=== PATIENT | female | born 1990 | race Caucasian/White ===

== ENCOUNTER 2021-07-03 21:33 | Emergency (ER) | payer OTHER, SELFPAY ==
--- NOTE | ~2021-07-03 | XR_ITS ---
XR hip RT 2V w AP pelvis DATE: 07/04/2021 02:04 INDICATION: Fall 3 days ago. Right posterior hip pain, low back pain TECHNIQUE: AP pelvis. AP and lateral views of right hip COMPARISON: None FINDINGS: No pelvic fracture or bone destruction. The pubic symphysis and sacroiliac joints are intac t. No fracture or dislocation, avascular necrosis or bone destruction of the right hip. Hip joint spa tiera appear symmetric and well preserved. IMPRESSION: Negative Reviewed, dictated and finalized at location A. 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
[2021-07-03 21:41] VITALS: BP 126/87; PULSE 78; RESP 18; TEMP 36.9; O2SAT 100
[2021-07-04] MEDS: KETOROLAC (*BKC) 60 MG/2 ML VIAL IM (02:56)
[2021-07-04 03:30] LABS: Add Urine Microscopic? YES; Appearance Urine Clear (Clear); Bacteria Urine Trace /hpf; Bilirubin Urine Negative (Negative); Blood Urine Negative (Negative); Color Urine Yellow (Yellow); Glucose Urine UA Negative (Negative); Ketones Urine Trace mg/dL (Negative); Leukocyte Esterase Ur Negative LEU/UL (Negative); Mucus Urine Rare /lpf; Nitrate Urine Negative (Negative); Protein Urine Negative (Negative); RBC Urine 0-2 /hpf (0-2); Specific Grav Ur 1.014 (1.001-1.035); Squamous Epithelial Cell Urine Rare /hpf (Few); Urobilinogen Urine Negative mg/dL (<2.0); WBC Urine 0-3 /hpf
--- NOTE | 2021-07-04 04:17 | ED.FALL ---
HPI - Fall General Chief Complaint: Fall Stated Complaint: right hip pain s/p fall Time Seen by Provider: 07/04/21 01:29 History of Present Illness HPI Narrative: Patient is a 31-year-old female who presents ER with left hip pain. Patient had a slip and fall on ice 4 days ago. She had initial pain but has increased over the last few days. No improvement with Flexeril. She has developed some urinary frequency and suprapubic cramping. The cramping feels like her previous issues with endometriosis but she is unsure if is related. Pain in the hip radiates into the low back and buttock region also goes into the thigh. No numbness or tingling. No saddle anesthesia. Related Data Allergies Allergy/AdvReac Type Severity Reaction Status Date / Time hydrocodone AdvReac Unknown Nausea and Verified 07/28/18 08:02 Vomiting Review of Systems Musculoskeletal: Musculoskeletal: Reports back pain, Reports arthralgias, Denies joint swelling and Reports muscle cramps Integumentary/Breasts: Skin/Breast: Denies erythema and Denies rash Neurologic: Denies syncope, Denies focal weakness and Denies numbness PMFSH Past Medical History Medical History (Updated 07/04/21 @ 04:32 by Marcelo Anderson MD) Endometriosis Ovarian cyst Surgical History Surgical History (Updated 07/04/21 @ 04:32 by Marcelo Anderson MD) H/O laparoscopy History of appendectomy Social History Social History (Updated 07/04/21 @ 04:32 by Marcelo Anderson MD) Smoking status: Never smoker Exam Narrative: GENERAL: Well-appearing, well-nourished, and in no acute distress. HEAD: Normocephalic, atraumatic. CHEST: Clear to auscultation. No respiratory distress. HEART: Regular rate and rhythm. Normal peripheral pulses. ABDOMEN: Soft, nontender, nondistended. EXTREMITIES: Focused exam right lower extremity reveals full range of motion that is painless at the right hip and knee. There is tenderness over the lateral posterior aspect of the right hip without bruising or swelling. No shortening of the leg. Sensation intact. Back: No midline tenderness of thoracic or lumbar spine. There is right paraspinal muscular tenderness extending into the gluteal region without visual evidence of trauma. SKIN: Warm, dry, no rash. NEURO: No focal deficits. Alert and oriented x3. PSYCH: Normal mood and affect. Course Course Emergency Course: No urinary retention, 35 mL on bladder scan. Pain markedly improved with Toradol. Discharge home. Vital Signs Vital signs: Vital Signs Temperature 98.4 F 07/03/21 21:41 Pulse Rate 78 07/03/21 21:41 Respiratory Rate 18 07/03/21 21:41 Blood Pressure 126/87 07/03/21 21:41 Pulse Oximetry 100 07/03/21 21:41 Temperature 98.4 F 07/03/21 21:41 Pulse Rate 78 07/03/21 21:41 Respiratory Rate 18 07/03/21 21:41 Blood Pressure 126/87 07/03/21 21:41 Pulse Oximetry 100 07/03/21 21:41 MDM - Fall Lab Data Labs: Lab Results 07/04/21 Range/Units 02:53 Urine Color Yellow (Yellow) Urine Appearance Clear (Clear) Urine pH 5.0 (5.0-9.0) Ur Specific [place] 1.014 (1.001-1.035) Urine Protein Negative (Negative) mg/dL Urine Glucose (UA) Negative (Negative) mg/dL Urine Ketones Trace (Negative) mg/dL Ur Blood (Man) Negative (Negative) Urine Nitrate Negative (Negative) Urine Bilirubin Negative (Negative) Urine Urobilinogen Negative (<2.0) mg/dL Leukocyte Esterase Rfl Negative (Negative) GURJIT/UL Urine RBC 0-2 (0-2) /hpf Urine WBC 0-3 /hpf Ur Squamous Epith Cells Rare (Few) /hpf Urine Bacteria Trace /hpf Urine Mucus Rare /lpf UCG Bedside Result Negative Reference Range: Negative Imaging Data My impression: X-ray right hip and pelvis: No acute process. Discharge Plan Discharge Clinical Impression: Contusion of hip, Low back strain Patient Disposition: Home, Self-Care
== END 2021-07-04 05:09 | disposition home or self-care (01) ==
PROVIDERS: Emergency Provider Emergency Medicine
DX: S70.02XA Contusion of left hip, initial encounter (principal); S39.012A Strain of muscle, fascia and tendon of lower back, initial encounter; N80.9 Endometriosis, unspecified; W00.0XXA Fall on same level due to ice and snow, initial encounter
CPT/HCPCS: 73502; 81001; 81025; 96372; 99283; J1885

== ENCOUNTER 2024-05-14 13:45 | Emergency (ER) | payer OTHER, SELFPAY ==
--- NOTE | ~2024-05-14 | CT_ITS ---
CT abdomen pelvis w con Ordering provider: Yoly Buenrostro PA-C History: 33 years Female with . low abd pain . Comparison: July 22, 2018 Technique: CT abdomen and pelvis with IV and without oral contrast. Automated exposure control and it erative reconstruction technique were employed. The dose-length product was 407.84 mGy-cm. 100 mL Omn ipaque 350 was given IV. Findings: VISUALIZED LOWER CHEST: Normal. UPPER ABDOMINAL ORGANS: Liver: Tiny hypodensity in the right lobe of the liver segment #7 measuring 7 mm. Unchanged. Gallbladder: Status post cholecystectomy. Spleen: Normal. Stomach/duodenum: Normal. Pancreas: Normal. Adrenals: Normal. Kidneys: Normal. PELVIC ORGANS: The bladder is underfilled. Thickened wall of the urinary bladder is seen which may in dicate cystitis. Uterus: Soft tissue density is seen adjacent to the uterus posteriorly which may be fibroid. Ultrasou nd evaluation advised. Retroverted. Tiny cyst in the right ovary. BOWEL AND MESENTERY: Colon: No evidence of diverticulitis. Status post appendectomy. Small Bowel: Normal. No obstruction. Peritoneum/mesentery: No free air or free fluid. No mesenteric lymphadenopathy. RETROPERITONEUM: Normal aorta. No retroperitoneal lymphadenopathy. MUSCULOSKELETAL: Superficial soft tissues: The superficial soft tissues are normal. Bones: Normal spine. IMPRESSION: 1. No evidence of appendicitis, diverticulitis or intestinal obstruction. 2. Hypodensity in the liver unchanged from previous examination. 3. Soft tissue density posterior to the uterus which may be a fibroid. Ultrasound evaluation advise d. 4. Thickened wall of the urinary bladder. Evaluation for cystitis advised Reviewed, dictated and finalized at location A. INSERTER REGULATOR IMPRESSION: 1. No evidence of appendicitis, diverticulitis or intestinal obstruction. 2. Hypodensity in the liver unchanged from previous examination. 3. Soft tissue density posterior to the uterus which may be a fibroid. Ultras ound evaluation advised. 4. Thickened wall of the urinary bladder. Evaluation for cystitis advised
[2024-05-14 13:47] VITALS: BP 130/87; PULSE 84; RESP 16; TEMP 36.3; O2SAT 100
[2024-05-14 14:04] LABS: BEDSIDEPREGUCG Negative (Negative)
[2024-05-14 14:19] LABS: Add Urine Microscopic? YES; Appearance Urine Clear (Clear); Bacteria Urine Rare /hpf; Bilirubin Urine Negative (Negative); Blood Urine 2+ (Negative); Color Urine Yellow (Yellow); Glucose Urine UA Negative (Negative); Ketones Urine 2+ mg/dL (Negative); Leukocyte Esterase Ur Negative LEU/UL (Negative); Nitrate Urine Negative (Negative); Non Pathogenic Casts 0-2; Protein Urine 1+ mg/dL (Negative); RBC Urine 0-2 /hpf (0-2); Specific Grav Ur 1.007 (1.001-1.035); Squamous Epithelial Cell Urine None Seen /hpf (Few); Urobilinogen Urine 0.2 mg/dL (<2.0); pH Urine 5.5 (5.0-9.0)
[2024-05-14 14:21] LABS: Basophils Percent Auto 0.4 % (0.2-1.2); Eosinophils Absolute Auto 0.1 K/mm3 (0-0.3); Eosinophils Percent Auto 0.8 % (0-4.4); Hematocrit 41.9 % (37.0-47.0); Hemoglobin 14.4 g/dL (12.0-15.0); Immature Granulocyte Absolute 0.01 K/mm3 (0.00-0.031); Immature Granulocyte Percent A 0.1 % (0-0.5); Lymphocytes Absolute Auto 1.58 K/mm3 (0.9-3.2); Lymphocytes Percent Auto 21.2 % (18.3-44.2); Mean Corpuscular HGB Conc 34.4 g/dl (32-36); Mean Corpuscular Volume 90.1 fl (80-100); Mean Platelet Volume 11.4 fl (7.4-10.4); Monocytes Absolute Auto 0.4 K/mm3 (0.1-0.6); Neutrophils Absolute Auto 5.4 K/mm3 (1.3-6.7); Neutrophils Percent Auto 72.5 % (45.5-73.1); Platelet Count Result 182 k/mm3 (150-375); Red Blood Count 4.65 M/mm3 (4.2-5.4); Red Cell Distribution Width 12.6 % (11.5-14.5); White Blood Count 7.4 K/mm3 (4.5-10.0)
[2024-05-14 14:29] LABS: Alanine Aminotransferase 13 U/L (6-35); Alkaline Phosphatase 57 U/L (38-126); Anion Gap 15 mmol/L (4-12); Aspartate Amino Transferase 24 U/L (14-36); Bilirubin,Total 1.1 mg/dL (0.2-1.3); Blood Urea Nitrogen 8 mg/dL (7-17); Calcium 8.9 mg/dL (8.4-10.2); Carbon Dioxide 16 mmol/L (22-30); Chloride 102 mmol/L (98-107); Estimated CRCL calculation 66 ml/min; Estimated Glomerular Filt Rate 52; Glucose 76 mg/dL (65-110); Lipase 44 U/L (23-300); Potassium 3.5 mmol/L (3.4-5.0); Sodium 133 mmol/L (137-145)
[2024-05-14] MEDS: SODIUM CHLORIDE 0.9% IV 1,000 ML 999 ML IV CONT ×2 (14:50→18:17)
--- NOTE | 2024-05-14 15:51 | ED.ABDPAIN ---
HPI - Abdominal Pain General Chief Complaint: Abdominal Pain <QUE Patel Last Filed: 05/17/24 19:34> Stated Complaint: Pelvic and lower abdominal pain since 04/20/24 <QUE Patel Last Filed: 05/17/24 19:34> Time Seen by Provider: 05/14/24 14:00 <QUE Patel Last Filed: 05/17/24 19:34> Source: patient <QUE Patel Last Filed: 05/17/24 19:34> Mode of arrival: ambulatory <QUE Patel Last Filed: 05/17/24 19:34> Limitations: no limitations <QUE Patel Last Filed: 05/17/24 19:34> History of Present Illness HPI narrative: This is a 33 year old female that presents to the ER for lower abdominal pain. Ongoing over the last couple of days. Reports associated nausea and vomiting. Reports some blood in her urine. Denies fever, dysuria. <QUE Patel Last Filed: 05/17/24 19:34> Related Data Allergies/Adverse Reactions: Allergies Allergy/AdvReac Type Severity Reaction Status Date / Time balsam leona [From Mammol] Allergy Other Verified 05/14/24 13:47 bismuth subnitrate Allergy Other Verified 05/14/24 13:47 [From Mammol] castor oil [From Mammol] Allergy Other Verified 05/14/24 13:47 lanolin [From Mammol] Allergy Other Verified 05/14/24 13:47 hydrocodone AdvReac Unknown Nausea and Verified 07/28/18 08:02 Vomiting <QUE Patel Last Filed: 05/17/24 19:34> Review of Systems Review of Systems: CONSTITUTIONAL: Denies fever GASTROINTESTINAL: Reports abdominal pain, nausea, vomiting. Denies diarrhea. GENITOURINARY: Denies dysuria <QUE Patel Last Filed: 05/17/24 19:34> All systems reviewed & are unremarkable except as noted in HPI and below <QUE Patel Last Filed: 05/17/24 19:34> PMFSH Past Medical History Medical History: Medical History (Updated 05/15/24 @ 00:01 by Background Alyce) Endometriosis Ovarian cyst <Yoly Buenrostro PA-C - Last Filed: 05/17/24 19:34> Surgical History Surgical History: Surgical History (Updated 07/04/21 @ 04:32 by Marcelo Anderson MD) H/O laparoscopy History of appendectomy <Yoly Buenrostro PA-C - Last Filed: 05/17/24 19:34> Social History Social History: Social History (Updated 07/04/21 @ 04:32 by Marcelo Anderson MD) Smoking status: Never smoker <Yoly Buenrostro PA-C - Last Filed: 05/17/24 19:34> Exam Narrative: GENERAL: Well-appearing, well-nourished, and in no acute distress. HEAD: Normocephalic, atraumatic. EYES: EOMI. CHEST: Clear to auscultation. No respiratory distress. No wheezes rales or rhonchi HEART: Regular rate and rhythm. No murmur heard. Normal peripheral pulses. ABDOMEN: Soft, nondistended, normal active bowel sounds. Tender to palpation throughout the lower abdomen, without guarding EXTREMITIES: Normal range of motion. No edema. SKIN: Warm, dry, no rash. NEURO: No focal deficits. Alert and oriented x3. PSYCH: Normal mood and affect <QUE Patel Last Filed: 05/17/24 19:34> Course Course Emergency Course: patient updated on workup and agrees with plan of care <Yoly Buenrostro PA-C - Last Filed: 05/17/24 19:34> Vital Signs Vital signs: Vital Signs Temperature 97.4 F L 05/14/24 13:47 Pulse Rate 84 05/14/24 13:47 Respiratory Rate 16 05/14/24 13:47 Blood Pressure 130/87 05/14/24 13:47 Pulse Oximetry 100 05/14/24 13:47 Oxygen Delivery Room Air 05/14/24 13:47 Temperature 97.4 F L 05/14/24 13:47 Pulse Rate 80 05/14/24 21:17 Respiratory Rate 13 05/14/24 21:17 Blood Pressure 122/85 05/14/24 21:17 Pulse Oximetry 100 05/14/24 21:17 Oxygen Delivery Room Air 05/14/24 13:47 <Yoly Buenrostro PA-C - Last Filed: 05/17/24 19:34> Vital Signs Temperature 97.4 F L 05/14/24 13:47 Pulse Rate 84 05/14/24 13:47 Respiratory Rate 16 05/14/24 13:47 Blood Pressure 130/87 05/14/24 13:47 Pulse Oximetry 100 05/14/24 13:47 Oxygen Delivery Room Air 05/14/24 13:47 Temperature 97.4 F L 05/14/24 13:47 Pulse Rate 80 05/14/24 21:17 Respiratory Rate 13 05/14/24 21:17 Blood Pressure 122/85 05/14/24 21:17 Pulse Oximetry 100 05/14/24 21:17 Oxygen Delivery Room Air 05/14/24 13:47 <Steffanie Kumar PA-C - Last Filed: 05/14/24 21:39> MDM - Abdominal Pain MDM Narrative Medical decision making narrative: Patient presents to the emergency department for lower abdominal pain, nausea and vomiting. She is afebrile and nontoxic appearing. Her vitals are stable. Cbc without leukocytosis. Metabolic panel showing some dehydration. Patient hydrated with IV fluids in the ED. urine with 6-10 white blood cells, likely contamination. Patient is not having any urinary symptoms. CT abdomen and pelvis is without acute findings. Shows a possible fibroid. Recommend ultrasound evaluation. Patient updated on her workup thus far. Will repeat metabolic panel after her fluids to ensure this is improving. Care taken over by QUE Valiente at shift change Patient was signed out to me at shift change pending completion of fluids and repeat BMP. Repeat BMP showing closure of anion gap, creatinine improved to 1.1. Patient is feeling better with supportive therapy. She does report mild recurring pain/nausea. Will give additional meds here. Otherwise patient feels comfortable w/ discharge home. Will discharge on Zofran and Bentyl. Recommended close follow-up with PCP and gynecology for further evaluation. Given return precautions. Patient agrees with plan. Discharged in stable condition. <Yoly Buenrostro PA-C - Last Filed: 05/17/24 19:34> Patient was signed out to me at shift change pending completion of fluids and repeat BMP. Repeat BMP showing closure of anion gap, creatinine improved to 1.1. Patient is feeling better with supportive therapy. She does report mild recurring pain/nausea. Will give additional meds here. Otherwise patient feels comfortable w/ discharge home. Will discharge on Zofran and Bentyl. Recommended close follow-up with PCP and gynecology for further evaluation. Given return precautions. Patient agrees with plan. Discharged in stable condition. <Steffanie Kumar PA-C - Last Filed: 05/14/24 21:39> Differential Diagnosis Differential diagnosis: Likely calculus of kidney, constipation, diverticulitis, endometriosis and small bowel obstruction <Yoly Buenrostro PA-C - Last Filed: 05/17/24 19:34> Lab Data Attestation: I reviewed the patient's lab results. <Yoly Buenrostro PA-C - Last Filed: 05/17/24 19:34> Result diagrams: 05/14/24 14:12 05/14/24 19:52 <Yoly Buenrostro PA-C - Last Filed: 05/17/24 19:34> Labs: Lab Results 05/14/24 05/14/24 05/14/24 Range/Units 14:02 14:03 14:12 WBC 7.4 (4.5-10.0) K/mm3 RBC 4.65 (4.2-5.4) M/mm3 Hgb 14.4 (12.0-15.0) g/dL Hct 41.9 (37.0-47.0) % MCV 90.1 (80-100) fl MCH 31.0 (26-34) pg MCHC 34.4 (32-36) g/dl RDW 12.6 (11.5-14.5) % Plt Count 182 (150-375) k/mm3 MPV 11.4 H (7.4-10.4) fl Immature Gran % (Auto) 0.1 (0-0.5) % Neut % (Auto) 72.5 (45.5-73.1) % Lymph % (Auto) 21.2 (18.3-44.2) % [place] % (Auto) 5.0 (2.6-8.5) % Eos % (Auto) 0.8 (0-4.4) % Baso % (Auto) 0.4 (0.2-1.2) % Lymph # (Auto) 1.58 (0.9-3.2) K/mm3 [place] # (Auto) 0.4 (0.1-0.6) K/mm3 Eos # (Auto) 0.1 (0-0.3) K/mm3 Baso # (Auto) 0.0 (0.0-0.1) K/mm3 Abs Immat Gran (auto) 0.01 (0.00-0.031) K/mm3 Absolute Neuts (auto) 5.4 (1.3-6.7) K/mm3 Absolute Nucleated RBC 0.000 (0.0-0.012) K/mm3 Nucleated RBC % 0.0 (0.0-0.2) % Sodium 133 L (137-145) mmol/L Potassium 3.5 (3.4-5.0) mmol/L Chloride 102 (98-107) mmol/L Carbon Dioxide 16 L (22-30) mmol/L Anion Gap 15 H (4-12) mmol/L BUN 8 (7-17) mg/dL Creatinine 1.20 H (0.7-1.0) mg/dL Estim Creat Clear Calc 66 ml/min Estimated GFR 52 L (59 - ) Glucose 76 (65-110) mg/dL Calcium 8.9 (8.4-10.2) mg/dL Total Bilirubin 1.1 (0.2-1.3) mg/dL AST 24 (14-36) U/L ALT 13 (6-35) U/L Alkaline Phosphatase 57 (38-126) U/L Total Protein 7.0 (6.3-8.2) g/dL Albumin 4.0 (3.5-5.1) g/dL Lipase 44 (23-300) U/L Urine Color Yellow (Yellow) Urine Appearance Clear (Clear) Urine pH 5.5 (5.0-9.0) Ur Specific [place] 1.007 (1.001-1.035) Urine Protein 1+ H (Negative) mg/dL Urine Glucose (UA) Negative (Negative) mg/dL Urine Ketones 2+ H (Negative) mg/dL Ur Blood (Man) 2+ H (Negative) Urine Nitrate Negative (Negative) Urine Bilirubin Negative (Negative) Urine Urobilinogen 0.2 (<2.0) mg/dL Leukocyte Esterase Rfl Negative (Negative) GURJIT/UL Urine RBC 0-2 (0-2) /hpf Urine WBC 6-10 H (0-3) /hpf Ur Squamous Epith Cells None seen (Few) /hpf Urine Bacteria Rare /hpf Urine Casts 0-2 POC Urine HCG, Qual Negative (Negative) 05/14/24 Range/Units 19:52 WBC (4.5-10.0) K/mm3 RBC (4.2-5.4) M/mm3 Hgb (12.0-15.0) g/dL Hct (37.0-47.0) % MCV (80-100) fl MCH (26-34) pg MCHC (32-36) g/dl RDW (11.5-14.5) % Plt Count (150-375) k/mm3 MPV (7.4-10.4) fl Immature Gran % (Auto) (0-0.5) % Neut % (Auto) (45.5-73.1) % Lymph % (Auto) (18.3-44.2) % [place] % (Auto) (2.6-8.5) % Eos % (Auto) (0-4.4) % Baso % (Auto) (0.2-1.2) % Lymph # (Auto) (0.9-3.2) K/mm3 [place] # (Auto) (0.1-0.6) K/mm3 Eos # (Auto) (0-0.3) K/mm3 Baso # (Auto) (0.0-0.1) K/mm3 Abs Immat Gran (auto) (0.00-0.031) K/mm3 Absolute Neuts (auto) (1.3-6.7) K/mm3 Absolute Nucleated RBC (0.0-0.012) K/mm3 Nucleated RBC % (0.0-0.2) % Sodium 134 L (137-145) mmol/L Potassium 3.6 (3.4-5.0) mmol/L Chloride 105 (98-107) mmol/L Carbon Dioxide 17 L (22-30) mmol/L Anion Gap 12 (4-12) mmol/L BUN 7 (7-17) mg/dL Creatinine 1.10 H (0.7-1.0) mg/dL Estim Creat Clear Calc 72 ml/min Estimated GFR 58 L (59 - ) Glucose 65 (65-110) mg/dL Calcium 7.9 L (8.4-10.2) mg/dL Total Bilirubin (0.2-1.3) mg/dL AST (14-36) U/L ALT (6-35) U/L Alkaline Phosphatase (38-126) U/L Total Protein (6.3-8.2) g/dL Albumin (3.5-5.1) g/dL Lipase (23-300) U/L Urine Color (Yellow) Urine Appearance (Clear) Urine pH (5.0-9.0) Ur Specific [place] (1.001-1.035) Urine Protein (Negative) mg/dL Urine Glucose (UA) (Negative) mg/dL Urine Ketones (Negative) mg/dL Ur Blood (Man) (Negative) Urine Nitrate (Negative) Urine Bilirubin (Negative) Urine Urobilinogen (<2.0) mg/dL Leukocyte Esterase Rfl (Negative) GURJIT/UL Urine RBC (0-2) /hpf Urine WBC (0-3) /hpf Ur Squamous Epith Cells (Few) /hpf Urine Bacteria /hpf Urine Casts POC Urine HCG, Qual (Negative) <Yoly Buenrostro PA-C - Last Filed: 05/17/24 19:34> Lab Results 05/14/24 05/14/24 05/14/24 Range/Units 14:02 14:03 14:12 WBC 7.4 (4.5-10.0) K/mm3 RBC 4.65 (4.2-5.4) M/mm3 Hgb 14.4 (12.0-15.0) g/dL Hct 41.9 (37.0-47.0) % MCV 90.1 (80-100) fl MCH 31.0 (26-34) pg MCHC 34.4 (32-36) g/dl RDW 12.6 (11.5-14.5) % Plt Count 182 (150-375) k/mm3 MPV 11.4 H (7.4-10.4) fl Immature Gran % (Auto) 0.1 (0-0.5) % Neut % (Auto) 72.5 (45.5-73.1) % Lymph % (Auto) 21.2 (18.3-44.2) % [place] % (Auto) 5.0 (2.6-8.5) % Eos % (Auto) 0.8 (0-4.4) % Baso % (Auto) 0.4 (0.2-1.2) % Lymph # (Auto) 1.58 (0.9-3.2) K/mm3 [place] # (Auto) 0.4 (0.1-0.6) K/mm3 Eos # (Auto) 0.1 (0-0.3) K/mm3 Baso # (Auto) 0.0 (0.0-0.1) K/mm3 Abs Immat Gran (auto) 0.01 (0.00-0.031) K/mm3 Absolute Neuts (auto) 5.4 (1.3-6.7) K/mm3 Absolute Nucleated RBC 0.000 (0.0-0.012) K/mm3 Nucleated RBC % 0.0 (0.0-0.2) % Sodium 133 L (137-145) mmol/L Potassium 3.5 (3.4-5.0) mmol/L Chloride 102 (98-107) mmol/L Carbon Dioxide 16 L (22-30) mmol/L Anion Gap 15 H (4-12) mmol/L BUN 8 (7-17) mg/dL Creatinine 1.20 H (0.7-1.0) mg/dL Estim Creat Clear Calc 66 ml/min Estimated GFR 52 L (59 - ) Glucose 76 (65-110) mg/dL Calcium 8.9 (8.4-10.2) mg/dL Total Bilirubin 1.1 (0.2-1.3) mg/dL AST 24 (14-36) U/L ALT 13 (6-35) U/L Alkaline Phosphatase 57 (38-126) U/L Total Protein 7.0 (6.3-8.2) g/dL Albumin 4.0 (3.5-5.1) g/dL Lipase 44 (23-300) U/L Urine Color Yellow (Yellow) Urine Appearance Clear (Clear) Urine pH 5.5 (5.0-9.0) Ur Specific [place] 1.007 (1.001-1.035) Urine Protein 1+ H (Negative) mg/dL Urine Glucose (UA) Negative (Negative) mg/dL Urine Ketones 2+ H (Negative) mg/dL Ur Blood (Man) 2+ H (Negative) Urine Nitrate Negative (Negative) Urine Bilirubin Negative (Negative) Urine Urobilinogen 0.2 (<2.0) mg/dL Leukocyte Esterase Rfl Negative (Negative) GURJIT/UL Urine RBC 0-2 (0-2) /hpf Urine WBC 6-10 H (0-3) /hpf Ur Squamous Epith Cells None seen (Few) /hpf Urine Bacteria Rare /hpf Urine Casts 0-2 POC Urine HCG, Qual Negative (Negative) 05/14/24 Range/Units 19:52 WBC (4.5-10.0) K/mm3 RBC (4.2-5.4) M/mm3 Hgb (12.0-15.0) g/dL Hct (37.0-47.0) % MCV (80-100) fl MCH (26-34) pg MCHC (32-36) g/dl RDW (11.5-14.5) % Plt Count (150-375) k/mm3 MPV (7.4-10.4) fl Immature Gran % (Auto) (0-0.5) % Neut % (Auto) (45.5-73.1) % Lymph % (Auto) (18.3-44.2) % [place] % (Auto) (2.6-8.5) % Eos % (Auto) (0-4.4) % Baso % (Auto) (0.2-1.2) % Lymph # (Auto) (0.9-3.2) K/mm3 [place] # (Auto) (0.1-0.6) K/mm3 Eos # (Auto) (0-0.3) K/mm3 Baso # (Auto) (0.0-0.1) K/mm3 Abs Immat Gran (auto) (0.00-0.031) K/mm3 Absolute Neuts (auto) (1.3-6.7) K/mm3 Absolute Nucleated RBC (0.0-0.012) K/mm3 Nucleated RBC % (0.0-0.2) % Sodium 134 L (137-145) mmol/L Potassium 3.6 (3.4-5.0) mmol/L Chloride 105 (98-107) mmol/L Carbon Dioxide 17 L (22-30) mmol/L Anion Gap 12 (4-12) mmol/L BUN 7 (7-17) mg/dL Creatinine 1.10 H (0.7-1.0) mg/dL Estim Creat Clear Calc 72 ml/min Estimated GFR 58 L (59 - ) Glucose 65 (65-110) mg/dL Calcium 7.9 L (8.4-10.2) mg/dL Total Bilirubin (0.2-1.3) mg/dL AST (14-36) U/L ALT (6-35) U/L Alkaline Phosphatase (38-126) U/L Total Protein (6.3-8.2) g/dL Albumin (3.5-5.1) g/dL Lipase (23-300) U/L Urine Color (Yellow) Urine Appearance (Clear) Urine pH (5.0-9.0) Ur Specific [place] (1.001-1.035) Urine Protein (Negative) mg/dL Urine Glucose (UA) (Negative) mg/dL Urine Ketones (Negative) mg/dL Ur Blood (Man) (Negative) Urine Nitrate (Negative) Urine Bilirubin (Negative) Urine Urobilinogen (<2.0) mg/dL Leukocyte Esterase Rfl (Negative) GURJIT/UL Urine RBC (0-2) /hpf Urine WBC (0-3) /hpf Ur Squamous Epith Cells (Few) /hpf Urine Bacteria /hpf Urine Casts POC Urine HCG, Qual (Negative) <Steffanie Kumar PA-C - Last Filed: 05/14/24 21:39> Imaging Data Radiologist's impression: ITS Impressions Abdomen/Pelvis CT 05/14/24 16:57 IMPRESSION: 1. No evidence of appendicitis, diverticulitis or intestinal obstruction. 2. Hypodensity in the liver unchanged from previous examination. 3. Soft tissue density posterior to the uterus which may be a fibroid. Ultrasound evaluation advised. 4. Thickened wall of the urinary bladder. Evaluation for cystitis advised <Yoly Buenrostro PA-C - Last Filed: 05/17/24 19:34> ITS Impressions Abdomen/Pelvis CT 05/14/24 16:57 IMPRESSION: 1. No evidence of appendicitis, diverticulitis or intestinal obstruction. 2. Hypodensity in the liver unchanged from previous examination. 3. Soft tissue density posterior to the uterus which may be a fibroid. Ultrasound evaluation advised. 4. Thickened wall of the urinary bladder. Evaluation for cystitis advised <QUE Amaro Last Filed: 05/14/24 21:39> Critical Care Time Critical Care Time Critical Care Time: No <QUE Patel Last Filed: 05/17/24 19:34> Discharge Plan Discharge Clinical Impression: Dehydration, Lower abdominal pain <QUE Patel Last Filed: 05/17/24 19:34> Patient Disposition: Home, Self-Care <QUE Patel Last Filed: 05/17/24 19:34> Condition: Stable <QUE Patel Last Filed: 05/17/24 19:34> Instructions: Dehydration (ED), Abdominal Pain (ED) <QUE Patel Last Filed: 05/17/24 19:34> Additional Instructions: Return to the ER if you experience fever, abdominal pain with nausea and vomiting, you are unable to keep down liquids or solids, blood in the stool, pain or burning with urination, blood in the urine or any other symptoms that are concerning to you Remain well hydrated. Ondansetron as needed for nausea The radiologist saw a soft tissue density by your uterus which he thinks may be a fibroid. Recommends further evaluation with an ultrasound. 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 <QUE Patel Last Filed: 05/17/24 19:34> Prescriptions: New ondansetron 4 mg tablet,disintegrating 4 mg PO Q8H PRN (Reason: nausea and vomiting) Qty: 20 0RF dicyclomine 20 mg tablet 20 mg PO BID PRN (Reason: abdominal pain) Qty: 10 0RF No Action naproxen 375 mg tablet 375 mg PO BID Qty: 14 0RF carisoprodol [Soma] 250 mg tablet 250 mg PO TID Qty: 14 0RF <QUE Patel Last Filed: 05/17/24 19:34> Follow-up/Referrals: UNKNOWN,DOCTOR [Primary Care Provider] - <Yoly Buenrostro PA-C - Last Filed: 05/17/24 19:34> Time of Disposition: 20:53 <Yoly Buenrostro PA-C - Last Filed: 05/17/24 19:34> 20:53 <Steffanie Kumar PA-C - Last Filed: 05/14/24 21:39>
[2024-05-14] MEDS: ONDANSETRON INJ 4 MG/2 ML VIAL IV PUSH ×2 (16:31→20:49)
[2024-05-14] MEDS: MORPHINE SULFATE (*CRX) 4 MG/ML INJ IV PUSH ×2 (16:33→20:49)
[2024-05-14] MEDS: KETOROLAC 15 MG/ML VIAL (*BKC) IV PUSH (17:23)
--- NOTE | 2024-05-14 17:32 | PC.NURSE ---
pt c/o thirst. EDP made aware. Yoly HASKINS states pt can have water. Pt given water to drink.
[2024-05-14 20:06] LABS: Anion Gap 12 mmol/L (4-12); Blood Urea Nitrogen 7 mg/dL (7-17); Calcium 7.9 mg/dL (8.4-10.2); Carbon Dioxide 17 mmol/L (22-30); Chloride 105 mmol/L (98-107); Estimated CRCL calculation 72 ml/min; Estimated Glomerular Filt Rate 58; Glucose 65 mg/dL (65-110); Potassium 3.6 mmol/L (3.4-5.0); Sodium 134 mmol/L (137-145)
[2024-05-14 21:17] VITALS: BP 122/85; PULSE 80; RESP 13; O2SAT 100
== END 2024-05-14 21:17 | disposition home or self-care (01) ==
PROVIDERS: Emergency Provider Physician Assistant
DX: E86.0 Dehydration (principal); R10.30 Lower abdominal pain, unspecified
CPT/HCPCS: 36415; 74177; 80048; 80053; 81001; 81025; 83690; 85025; 87086; 96361; 96374; 96375; 96376; 99284; J1885; J2270; J2405; J7030; Q9967